=== PATIENT | female | born 1950 | race African-American/Black ===

== ENCOUNTER 2019-10-13 20:54 | Emergency (ER) | payer MEDICARE, MEDICAID ==
[~2019-10-13] VITALS: Ht 165.1 cm; Wt 63.0 kg
[2019-10-13] MEDS ORDERED: MORPHINE SULFATE 4 MG/ML CPJ (NOT FOR IM USE) IV STA (23:00)
[2019-10-13] MEDS ORDERED: ONDANSETRON HCL 4MG/2ML INJ IV STA (23:00)
[2019-10-13] MEDS ORDERED: SODIUM CHLORIDE 0.9% 1,000 ML IV ONE (23:00)
[2019-10-13 23:16] LABS: CHLORIDE 109 mEq/L (98-107)
[2019-10-13 23:18] LABS: BASOPHILS % 0.3 % (0.0-2.0); EOSINOPHILS % 3.2 % (0.0-5.0); HEMATOCRIT. 37.7 % (36.0-48.0); HEMOGLOBIN. 12.9 g/dL (12.0-16.0); LYMPHOCYTES % 10.1 % (20.0-50.0); MEAN CORPUSCULAR HEMOGLOBIN 31.1 pg (28.0-32.0); MEAN CORPUSCULAR VOLUME 90.9 fL (81.0-99.0); MEAN PLATELET VOLUME 8.3 fl (7.4-10.4); NEUTROPHILS % 79.4 % (40.0-76.0); PLATELET 142 x1000/uL (130-400); RED BLOOD CELL COUNT 4.14 mill/uL (4.2-5.4); RED CELL DISTRIBUTION WIDTH 15.1 % (11.6-14.6)
[2019-10-13 23:21] LABS: CLARITY URINE CLOUDY (CLEAR); COLOR URINE YELLOW (YELLOW); KETONES URINE NEGATIVE (NEGATIVE); LEUKOCYTE ESTERASE URINE 1+ (NEGATIVE); NITRITE URINE POSITIVE (NEGATIVE); OCCULT BLOOD URINE 2+ (NEGATIVE); PROTEIN URINE 2+ (NEGATIVE); SPECIFIC GRAVITY URINE 1.014 (1.005-1.030)
[2019-10-13 23:23] LABS: PROTHROMBIN TIME 10.8 sec (9.6-11.0)
[2019-10-14] MEDS ORDERED: FENTANYL CITRATE/PF 50MCG/ML 2ML VIAL IV ONE ×2 (00:15→04:00)
[2019-10-14] MEDS ORDERED: CEFTRIAXONE 1 G PREMIX 50 ML IV ONE (06:00)
[2019-10-14] MEDS ORDERED: MORPHINE SULFATE 4 MG/ML CPJ (NOT FOR IM USE) IV ONE ×2 (10:30→11:30)
[2019-10-14 11:33] VITALS: BP 152/100
== END 2019-10-14 11:23 | disposition short-term general hospital (02) ==
LOC: ER 20:54 → EDBEDREQ 23:51 → CANBEDREQ 10-14 01:26 → ER 10-14 11:23 → CANBEDREQ 10-14 11:39
DX: K62.3 Rectal prolapse (principal); E11.9 Type 2 diabetes mellitus without complications; I10 Essential (primary) hypertension
CPT/HCPCS: 36415; 80048; 81003; 82962; 83605; 85025; 85610; 93005; 96361; 96365; 96375; 96376; 99285; J0696; J2270; J2405; J3010; J7030